=== PATIENT | female | born 1990 | race Asian ===

== ENCOUNTER 2019-03-26 19:22 | Emergency (ER) | payer OTHER ==
[~2019-03-26] VITALS: Ht 154.9 cm; Wt 88.0 kg
[2019-03-26 21:02] VITALS: BP 1269/78; TEMP 97.7
== END 2019-03-26 21:05 | disposition home or self-care (01) ==
LOC: ED 19:22
DX: Z04.1 Encounter for examination and observation following transport accident (principal); V59.50XA Passenger in pick-up truck or van injured in collision with unspecified motor vehicles in traffic accident, initial encounter; Y92.410 Unspecified street and highway as the place of occurrence of the external cause
CPT/HCPCS: 99281

== ENCOUNTER 2022-08-08 14:13 | Emergency (ER) | payer OTHER | END 2022-08-08 14:16 | LOC: ED 14:13 | DX: Z53.21 Procedure and treatment not carried out due to patient leaving prior to being seen by health care provider (principal) ==

== ENCOUNTER 2023-05-30 19:12 | Emergency (ER) | payer OTHER ==
[~2023-05-30] VITALS: Ht 154.9 cm; Wt 72.6 kg
[2023-05-30 19:12] VITALS: BP 121/78; TEMP 98.3
[2023-05-30 20:12] LABS: PLATELET COUNT 291 K/uL (152-353)
[2023-05-30 20:22] LABS: POTASSIUM 3.7 mmol/L (3.6-5.2); SODIUM 140 mmol/L (136-145)
== END 2023-05-31 14:10 | disposition still patient (30) ==
LOC: ED 19:12
PROVIDERS: Family Medicine
DX: R45.851 Suicidal ideations (principal); F32.A Depression, unspecified; F20.9 Schizophrenia, unspecified; F10.10 Alcohol abuse, uncomplicated; F15.10 Other stimulant abuse, uncomplicated; F17.210 Nicotine dependence, cigarettes, uncomplicated
CPT/HCPCS: 36415; 80053; 80143; 80179; 80307; 80320; 81000; 81025; 85027; 87077; 87086; 87088; 87186; 87635; 93005; 99285; U0003